=== PATIENT | male | born 1980 | race Caucasian/White ===

== ENCOUNTER → 2019-03-19 | Emergency (ER) | payer SELFPAY ==
[~2019-03-19] VITALS: Ht 182.9 cm; Wt 99.8 kg
--- NOTE | 2019-03-19 14:21 | ED Lower Extremity ---
General Chief Complaint: Lower Extremity Stated Complaint: ANKLE INJ Source: patient Exam Limitations: no limitations History of Present Illness Date Seen by Provider: March 19, 2019 Time Seen by Provider: 14:19 Initial Comments To Er with c/o right lateral ankle pain since about 10am when he twisted it during basketball game. Onset: just prior to arrival Severity: moderate Pain/Injury Location: right ankle Method of Injury: sports injury, twisted Modifying Factors: Worse With Movement Allergies and Home Medications Patient Home Medication List Home Medication List Reviewed: Yes Review of Systems Constitutional: see HPI EENTM: see HPI Respiratory: no symptoms reported Cardiovascular: no symptoms reported Genitourinary: no symptoms reported Musculoskeletal: see HPI Skin: no symptoms reported Psychiatric/Neurological: No Symptoms Reported Physical Exam Vital Signs Vital Signs - First Documented 03/19/19 14:13 Temp 98.5 Pulse 90 Resp 16 B/P (MAP) 134/100 (111) Capillary Refill : Height, Weight, BMI Height: '" Weight: lbs. oz. kg; BMI Method: General Appearance: WD/WN, no apparent distress Respiratory: no respiratory distress, no accessory muscle use Hips: bilateral hip non-tender, bilateral hip normal inspection, bilateral hip normal range of motion Legs: bilateral leg non-tender, bilateral leg normal inspection, bilateral leg normal range of motion Knees: bilateral knee non-tender, bilateral knee normal inspection, bilateral knee normal range of motion Ankles: right ankle pain, right ankle soft tissue tenderness, right ankle swelling, right ankle other (there is swelling over the right lateral malleolus , no obvious deformity or dislocation. Dorsalis pedis pulses +2.) Feet: bilateral foot non-tender, bilateral foot normal inspection, bilateral foot normal range of motion Neurologic/Psychiatric: alert, normal mood/affect, oriented x 3 Progress/Results/Core Measures Results/Orders My Orders Orders - BLAKE TSE APRN Ankle, Right, 3 Views (03/19/19 14:03) Foot, Right, 3 View (03/19/19 14:13) Vital Signs/I&O 03/19/19 14:13 Temp 98.5 Pulse 90 Resp 16 B/P (MAP) 134/100 (111) Departure Impression Primary Impression: Ankle sprain Qualified Codes: S93.401A - Sprain of unspecified ligament of right ankle, initial encounter Disposition: 01 HOME, SELF-CARE Condition: Stable Departure-Patient Inst. Decision time for Depature: 14:31 Referrals: NO,LOCAL PHYSICIAN (PCP) Primary Care Physician Patient Instructions: Ankle Sprain (DC) Add. Discharge Instructions: 1. Use crutches as needed for pain with walking. Whenever you're able to bear weight/walk without pain you can stop using the crutches. In the meantime Tylenol Motrin rest ice compression and elevation to reduce swelling and help with pain control. Follow-up with your doctor or any persistent pain that sticks around towards the end of next week.. All discharge instructions reviewed with patient and/or family. Voiced understanding. Work/School Note: Work Release Form Date Seen in the Emergency Department: March 19, 2019 Return to Work: March 20, 2019 Other Restrictions Listed Below: crutches when walking. Please allow right ankle elevation 30 minutes/2 hrs BLAKE TSE APRN March 19, 2019 14:21
--- NOTE | 2019-03-19 14:30 | Diagnostic Imaging Report ---
INDICATION: Right ankle pain. FINDINGS: Three views of the right ankle show no fracture, dislocation, or other acute abnormalities. IMPRESSION: Negative right ankle. Dictated by: Dictated on workstation # [id number]
--- NOTE | 2019-03-19 14:31 | Diagnostic Imaging Report ---
INDICATION: Right foot injury playing basketball. Three views of right foot show no fracture, dislocation or other acute abnormalities. IMPRESSION: Negative right foot. Dictated by: Dictated on workstation # [id number]
[2019-03-19 14:44] VITALS: BP 160/90
== END | disposition home or self-care (01) ==
LOC: EDUNIT# 13:57 → ER 13:59
DX: S93.401A Sprain of unspecified ligament of right ankle, initial encounter (principal); X50.1XXA Overexertion from prolonged static or awkward postures, initial encounter; Y93.67 Activity, basketball
CPT/HCPCS: 73610; 73630